=== PATIENT | female | born 1975 | race Caucasian/White ===

== ENCOUNTER 2017-09-10 11:58 | Emergency (ER) | payer OTHER ==
--- NOTE | 2017-09-10 14:48 | Emergency Department Report ---
ED Female HPI - General Chief complaint: Vaginal Bleeding Stated complaint: /SPOTTING Time Seen by Provider: 09/10/17 14:07 Source: patient Mode of arrival: Ambulatory Limitations: No Limitations - History of Present Illness Initial comments: 41-year-old female past medical history none presents with complaint of vaginal spotting since this morning. Denies any associated suprapubic pain or cramping. No fever no chills no nausea or vomiting reported by patient. Patient is awake alert and oriented 3. Patient is Slovenian speaking. Volunteer Josué Hayward and pts daughter at bedside are both bilingual and assisting me with communication. Patient is a limited Thai speaker. . [facility] was instructed to come to the ED for evaluation as she is currently . Last dysuria or hematuria or increased urinary frequency. Last menstrual period July 19 2017. Complaint: vaginal bleeding, pelvic pain -: This morning Consistency: constant Improves with: none Are you Now?: Yes Last Menstrual Period: 07/19/17 EDC: 04/25/18 Associated Symptoms: vaginal discharge - Related Data Sexually active: Yes : 3 Para: 2 Allergies Allergy/AdvReac Type Severity Reaction Status Date / Time No Known Allergies Allergy Unverified 09/10/17 12:21 ED Review of Systems ROS: Stated complaint: /SPOTTING Other details as noted in HPI Constitutional: denies: chills, fever Eyes: denies: eye pain, eye discharge, vision change ENT: denies: ear pain, throat pain Respiratory: denies: cough, shortness of breath, wheezing Cardiovascular: denies: chest pain, palpitations Endocrine: no symptoms reported Gastrointestinal: denies: abdominal pain, nausea, diarrhea Genitourinary: discharge. denies: urgency, dysuria Musculoskeletal: denies: back pain, joint swelling, arthralgia Skin: denies: rash, lesions Neurological: denies: headache, weakness, paresthesias Psychiatric: denies: anxiety, depression Hematological/Lymphatic: denies: easy bleeding, easy bruising ED Past Medical Hx - Past Medical History Previous Medical History?: No - Surgical History Past Surgical History?: No - Social History Smoking Status: Never Smoker ED Physical Exam - General Limitations: No Limitations General appearance: alert, in no apparent distress - Head Head exam: Present: atraumatic, normocephalic - Eye Eye exam: Present: normal appearance, PERRL, EOMI - ENT ENT exam: Present: mucous membranes moist - Neck Neck exam: Present: normal inspection - Respiratory Respiratory exam: Present: normal lung sounds bilaterally. Absent: respiratory distress - Cardiovascular Cardiovascular Exam: Present: regular rate, normal rhythm. Absent: systolic murmur, diastolic murmur, rubs, gallop - GI/Abdominal GI/Abdominal exam: Present: soft, normal bowel sounds - External exam: Present: normal external exam Speculum exam: Present: vaginal bleeding Bi-manual exam: Present: normal bi-manual exam - Extremities Exam Extremities exam: Present: normal inspection - Back Exam Back exam: Present: normal inspection - Neurological Exam Neurological exam: Present: alert, oriented X3, CN II-XII intact, normal gait - Psychiatric Psychiatric exam: Present: normal affect, normal mood - Skin Skin exam: Present: warm, dry, intact, normal color. Absent: rash ED Course Vital Signs 09/10/17 12:11 Temperature 98.4 F Pulse Rate 80 Respiratory 16 Rate Blood Pressure 126/60 O2 Sat by Pulse 99 Oximetry ED Medical Decision Making - Lab Data Result diagrams: 09/10/17 14:57 09/10/17 14:57 - Medical Decision Making A/P: , vaginal bleeding, threatened miscarriage 1-Rh+, ultrasound shows IUP 2-labs otherwise unremarkable 3-follow-up with [facility]. Patient already taking vitamins Critical care attestation.: If time is entered above; I have spent that time in minutes in the direct care of this critically ill patient, excluding procedure time. ED Disposition Clinical Impression: Vaginal bleeding during Disposition: - TO HOME OR SELFCARE Is pt being admited?: No Does the pt Need Aspirin: No Condition: Stable Instructions: Threatened Miscarriage (ED), (ED) Additional Instructions: Follow-up with [facility] in 7-10 days for repeat hCG level and ultrasound. Patient can present to the ED if she experiences pain and increased bleeding with any associated fever chills nausea or vomiting. Referrals: [facility] [Provider Group] - 3-5 Days Forms: Accompanied Note Time of Disposition: 18:52
[2017-09-10 15:12] LABS: Basophils # (Auto) 0.1 K/mm3 (0.0-0.1); Basophils % (Auto) 0.6 % (0.0-1.8); Eosinophils # (Auto) 0.1 K/mm3 (0.0-0.4); Eosinophils % (Auto) 0.9 % (0.0-4.3); Hematocrit 41.8 % (30.3-42.9); Hemoglobin 13.8 gm/dl (10.1-14.3); Lymphocytes # (Auto) 2.4 K/mm3 (1.2-5.4); Lymphocytes % (Auto) 21.6 % (13.4-35.0); Mean Corpuscular HGB Conc 33 % (30-34); Mean Corpuscular Hemoglobin 30 pg (28-32); Mean Corpuscular Volume 90 fl (79-97); Monocytes % (Auto) 8.9 % (0.0-7.3); Platelet Count 315 K/mm3 (140-440); Red Blood Count 4.66 M/mm3 (3.65-5.03); Red Cell Distribution Width 12.9 % (13.2-15.2)
[2017-09-10 15:23] LABS: BUN/Creatinine Ratio 30; Blood Urea Nitrogen 12 mg/dL (7-17); Calcium 9.2 mg/dL (8.4-10.2); Hemolysis Index 7
[2017-09-10 15:43] LABS: HCG Qualitative,Urine Positive (Negative)
[2017-09-10 15:44] LABS: Bacteria,Urine 1+ /HPF (Negative); Bilirubin,Urine NEG (Negative); Blood,Urine LG (Negative); Color,Urine Straw (Yellow); Protein,Urine <15 mg/dL mg/dL (Negative); Urobilinogen,Urine < 2.0 mg/dL (<2.0)
--- NOTE | 2017-09-10 18:14 | Ultrasound Report ---
FINAL REPORT EXAM: US OB < = 14 WEEKS FETUS HISTORY: preg vag bleeding LMP 07/19/17 clinical age 7 weeks 4 days and EDC 04/25/2017. Quantitative beta HCG level doubt 3295 (5-6 weeks estimated) TECHNIQUE: Ultrasound of the pelvis using transabdominal and transvaginal imaging PRIORS: None. FINDINGS: Uterus: Uterus is enlarged in size and normal and homogeneous in echogenicity without focal fibroid formation. The uterus measures 11.7 x 6.1 x 7.2 cm in size. There is a single early intrauterine gestation noted. Intrauterine gestation: There is a single intrauterine gestation identified but no evidence for a pole and yolk sac is noted in size this sac. Gestational sac average diameter measurement of 6.6 mm corresponds to estimated age 5 weeks 3 days with EDC 05/10/2018. Ovaries: The right ovary is not visualized. The left ovary appears normal in size and echogenicity with normal blood flow. The left ovary measures 2.2 x 1.4 x 2.1 cm in size. Other: There is no evidence for solid adnexal mass is seen. There is trace free fluid in the cul-de-sac. IMPRESSION: Single intrauterine with an approximate age of 5 weeks 3 days. However, no pole or yolk sac is noted within the gestational sac. This may represent a blighted ovum, however, short-term a follow-up in 7-10 days would be helpful to confirm a nonviable .
[2017-09-10 19:18] VITALS: BP 121/68
== END 2017-09-10 19:16 | disposition home or self-care (01) ==
LOC: ED 11:58
DX: O20.9 Hemorrhage in early pregnancy, unspecified (principal); Z3A.01 Less than 8 weeks gestation of pregnancy
CPT/HCPCS: 36415; 76801; 76817; 80048; 81001; 81025; 84702; 85025; 86900; 86901; 87086; 87210; 87591